=== PATIENT | female | born 2000 | race Two or more races ===

== ENCOUNTER 2023-07-27 16:10 | Observation (INO) | payer MEDICAID | END 2023-07-27 17:27 | disposition home or self-care (01) | LOC: UNDOADMOB 16:10 → LDRP 16:10 → UNDODISOB 17:27 | PROVIDERS: ADMIT Obstetrics & Gynecology; ATTEND Obstetrics & Gynecology | DX: O44.02 Complete placenta previa NOS or without hemorrhage, second trimester (principal); Z3A.21 21 weeks gestation of pregnancy | CPT/HCPCS: 59025; 94760; G0378 ==

== ENCOUNTER → 2023-08-29 | Outpatient (CLI) | payer MEDICAID ==
[2023-08-29 10:02] LABS: Basophils # (auto) 0 10 ^3/uL (0-0.2); Basophils % (auto) 0.4 % (0.0-2.0); Eosinophils # (auto) 0.1 10 ^3/uL (0-0.8); Eosinophils % (auto) 0.5 % (0.0-7.0); Hematocrit 34.3 % (36.0-46.0); Hemoglobin 11.2 g/dL (12.2-16.2); Lymphocytes # (auto) 2.3 10 ^3/uL (0.4-5.4); Lymphocytes % (auto) 19.7 % (10.0-50.0); Mean Corpuscular Hemoglobin 22.7 pg (28.0-32.0); Mean Corpuscular Hgb Conc. 32.6 g/dL (32.0-36.0); Mean Corpuscular Volume 69.9 fL (80.0-100.0); Monocytes # (auto) 0.5 10 ^3/uL (0-1.3); Monocytes % (auto) 4.1 % (0.0-12.0); Neutrophils # (auto) 8.8 10 ^3/uL (1.6-8.6); Neutrophils % (auto) 75.3 % (37.0-80.0); Nucleated Red Blood Cells % 0.1 %; Red Blood Cells 4.91 10^6/uL (4.0-5.20); Red Cell Distribution Width 15.9 % (11.8-14.3); White Blood Cell 11.7 10^3/uL (4.4-10.8)
[2023-08-30 07:07] LABS: RPR Non Reactive (Non Reactive)
[2023-08-31 02:06] LABS: Chlamydia Trachomatis, NAA Negative (Negative); Neisseria gonorrhoeae, NAA Negative (Negative)
== END | disposition home or self-care (01) ==
LOC: LAB 09:42
PROVIDERS: ATTEND Obstetrics & Gynecology
DX: Z34.80 Encounter for supervision of other normal pregnancy, unspecified trimester (principal); Z3A.00 Weeks of gestation of pregnancy not specified
CPT/HCPCS: 36415; 82951; 83036; 85025; 86592; 87086

== ENCOUNTER 2023-10-11 12:23 | Observation (INO) | payer MEDICAID ==
[~2023-10-11] VITALS: Ht 182.9 cm; Wt 86.2 kg
[2023-10-11] MEDS ORDERED: BETAMETHASONE ACET (30mg/5ml) 5ml Vial 6mg/ml IM ONE (14:00)
[2023-10-12] MEDS ORDERED: PREN1TAB71 OR ×2 (13:24)
== END 2023-10-11 14:27 | disposition home or self-care (01) ==
LOC: LDRP 12:23 → UNDOADMOB 12:23 → LDRP 12:31 → UNDODISOB 14:27
PROVIDERS: ADMIT Obstetrics & Gynecology; ATTEND Obstetrics & Gynecology
DX: O26.853 Spotting complicating pregnancy, third trimester (principal); O44.03 Complete placenta previa NOS or without hemorrhage, third trimester; Z3A.32 32 weeks gestation of pregnancy; Z79.899 Other long term (current) drug therapy
CPT/HCPCS: 59025; 76818; 81002; 94760; 96372; G0378; J0702

== ENCOUNTER 2023-10-12 12:57 | Observation (INO) | payer MEDICAID ==
[~2023-10-12] VITALS: Ht 154.9 cm; Wt 72.6 kg
[2023-10-12] MEDS ORDERED: BETAMETHASONE ACET (30mg/5ml) 5ml Vial 6mg/ml IM ONE (13:00)
[2023-10-12] MEDS ORDERED: PREN1TAB71 OR ×2 (13:24)
== END 2023-10-12 14:10 | disposition home or self-care (01) ==
LOC: LDRP 12:57 → UNDOADMOB 12:57 → LDRP 13:01 → UNDODISOB 14:10
PROVIDERS: ADMIT Obstetrics & Gynecology; ATTEND Obstetrics & Gynecology
DX: O26.853 Spotting complicating pregnancy, third trimester (principal); O62.9 Abnormality of forces of labor, unspecified; Z3A.32 32 weeks gestation of pregnancy
CPT/HCPCS: 59025; 81002; 94760; 96372; G0378

== ENCOUNTER 2023-11-13 04:06 | Inpatient (IN) | payer MEDICAID ==
[2023-11-12 09:56] LABS: Eosinophils # (auto) 0 10 ^3/uL (0-0.8); Eosinophils % (auto) 0.3 % (0.0-7.0); Lymphocytes # (auto) 1.4 10 ^3/uL (0.4-5.4); Monocytes % (auto) 4.3 % (0.0-12.0)
[2023-11-12 09:57] LABS: Basophils # (auto) 0 10 ^3/uL (0-0.2); Basophils % (auto) 0.1 % (0.0-2.0); Hematocrit 35.7 % (36.0-46.0); Hemoglobin 11.4 g/dL (12.2-16.2); Lymphocytes % (auto) 11.2 % (10.0-50.0); Mean Corpuscular Hemoglobin 22.2 pg (28.0-32.0); Mean Corpuscular Hgb Conc. 31.9 g/dL (32.0-36.0); Mean Corpuscular Volume 69.7 fL (80.0-100.0); Monocytes # (auto) 0.5 10 ^3/uL (0-1.3); Neutrophils # (auto) 10.6 10 ^3/uL (1.6-8.6); Neutrophils % (auto) 84.1 % (37.0-80.0); Red Blood Cells 5.13 10^6/uL (4.0-5.20); Red Cell Distribution Width 15.1 % (11.8-14.3); White Blood Cell 12.6 10^3/uL (4.4-10.8)
[2023-11-12 10:13] LABS: Urine Bacteria FEW /hpf (None Seen); Urine Blood 1+ /uL (Negative); Urine Clarity HAZY (Clear); Urine Color Yellow (Yellow); Urine Protein, UAD TRACE (Negative); Urine Specific Gravity 1.019 (1.001-1.035); Urine Urobilinogen Normal (Negative); Urine WBC 2 /hpf (0 - 5); Urine pH 6.5 (5.0-8.0)
[2023-11-12 10:14] LABS: Alanine Aminotransferase 13 U/L (7-40); Alkaline Phosphatase 163 U/L (46-116); Anion Gap 6 (5-15); Aspartate Aminotransferase 12 U/L (13-40); Bilirubin, Total 0.5 mg/dL (0.2-1.0); Carbon Dioxide 23 mmol/L (20-30); Chloride 107 mmol/L (98-107); Glucose 80 mg/dL (74-106); Potassium 3.8 mmol/L (3.5-5.1); Sodium 136 mmol/L (136-145)
[2023-11-12 10:15] LABS: Total Protein 6.9 g/dL (5.7-8.2)
[2023-11-12 10:16] LABS: BUN/Creatinine Ratio 8.8 (10.0-20.0); Blood Urea Nitrogen < 5 mg/dL (9-23)
[2023-11-12 10:18] LABS: INR 0.92 (0.9-1.15); Partial Thromboplastin Time 31.9 SEC (24.5-34.5); Prothrombin Time 9.7 sec (9.3-11.8)
[2023-11-12 10:27] LABS: Amphetamine Screen, Urine Neg (NEGATIVE); Barbiturate Scree,Urine Neg (NEGATIVE); Benzodiazephine Screen, Urine Neg (NEGATIVE); Cannabinoid Screen, Urine Neg (NEGATIVE); Cocaine Screen, Urine Neg (NEGATIVE); Opiate Scree,Urine Neg (NEGATIVE); Phencyclidine Screen, Urine Neg (NEGATIVE)
[2023-11-13] VITALS (18 sets, daily range): BP systolic 90–112; BP diastolic 59–80; PULSE 57–79; RESP 14–20; TEMP 97.5–97.6; O2SAT 96–100
[~2023-11-13] VITALS: Ht 165.1 cm; Wt 78.9 kg
[~2023-11-13 04:06] MED LIST: PREN1TAB71 OR
[2023-11-13] MEDS: LACTATED RINGER'S 1,000 ML IV SCH ×2 (06:33→11:45)
[2023-11-13] MEDS: LACTATED RINGER'S 1,000 ML IV ONE (06:33)
[2023-11-13] MEDS ORDERED: ONDANSETRON HCL 4 MG/2 ML VIAL ONE (07:23)
[2023-11-13] MEDS ORDERED: oxyTOCIN 10 UNIT/ML 10ML VIAL ONE (07:23)
[2023-11-13] MEDS ORDERED: DexAMETHasone SOD PHOS 10MG/1ML VIAL INJ ONE (07:24)
[2023-11-13] MEDS ORDERED: MORPHINE SULF PF 5 MG/10 ML VIAL ONE (07:24)
[2023-11-13] MEDS ORDERED: fentaNYL CITRATE 100 MCG/2 ML VL ONE (07:24)
[2023-11-13] MEDS ORDERED: KETOROLAC TROMETH 30 MG/ML 1ML VIAL ONE (07:24)
[2023-11-13] MEDS: ceFAZolin 2 GM/D5W50ml 50 ML IV ONE (07:45)
[2023-11-13] MEDS ORDERED: SODIUM CHLORIDE LOCK 10 ML ONE (08:03)
[2023-11-13] MEDS ORDERED: PHENYLEPHRINE HCL 10 MG/ML VL ONE (08:03)
[2023-11-13] MEDS ORDERED: HYDROmorphone HCL 2 MG/ML VL/or syr IV PRN (09:00)
[2023-11-13] MEDS ORDERED: ONDANSETRON HCL 4 MG/2 ML VIAL IV PRN ×2 (09:00→11:45)
[2023-11-13] MEDS ORDERED: diphenhdrAMINE HCL 50 MG/1 ML VL IV PRN (09:00)
[2023-11-13] MEDS ORDERED: NALOXONE HCL 0.4 MG/ML VIAL IV PRN (09:00)
[2023-11-13] MEDS ORDERED: ePHEDrine SULFATE 50 MG/ML AMP IV PRN (11:45)
[2023-11-13] MEDS: NALBUPHINE HCL 10 MG/1ml INJECTION IV ONE (13:51)
[2023-11-13] MEDS: ACETAMINOPHEN IV 1000 MG/100ML (10MG/ML) IV PRN (15:09)
[2023-11-13] MEDS: ceFAZolin 1GM/50ML 50 ML IV SCH (15:58)
[2023-11-13] MEDS: KETOROLAC TROMETH 30 MG/ML 1ML VIAL IV PRN (18:59)
[2023-11-14] VITALS (13 sets, daily range): BP systolic 94–106; BP diastolic 53–78; PULSE 54–81; RESP 16–20; TEMP 97.6–98.1; O2SAT 96–100
[2023-11-14] MEDS: ACETAMINOPHEN IV 1000 MG/100ML (10MG/ML) IV PRN (00:34)
[2023-11-14] MEDS ORDERED: HYDROcodone-ACET 5/325MG TAB PO PRN (06:15)
[2023-11-14 07:06] LABS: RPR Non Reactive (Non Reactive)
[2023-11-14 07:08] LABS: Basophils # (auto) 0 10 ^3/uL (0-0.2); Basophils % (auto) 0.1 % (0.0-2.0); Eosinophils # (auto) 0 10 ^3/uL (0-0.8); Eosinophils % (auto) 0.2 % (0.0-7.0); Hemoglobin 8.9 g/dL (12.2-16.2); Neutrophils # (auto) 9.3 10 ^3/uL (1.6-8.6)
[2023-11-14 07:10] LABS: Hematocrit 27.4 % (36.0-46.0); Lymphocytes # (auto) 2.6 10 ^3/uL (0.4-5.4); Lymphocytes % (auto) 19.8 % (10.0-50.0); Mean Corpuscular Hemoglobin 22.7 pg (28.0-32.0); Mean Corpuscular Hgb Conc. 32.7 g/dL (32.0-36.0); Mean Corpuscular Volume 69.6 fL (80.0-100.0); Monocytes # (auto) 1.3 10 ^3/uL (0-1.3); Neutrophils % (auto) 69.9 % (37.0-80.0); Red Blood Cells 3.93 10^6/uL (4.0-5.20); Red Cell Distribution Width 15.2 % (11.8-14.3); White Blood Cell 13.3 10^3/uL (4.4-10.8)
[2023-11-14] MEDS ORDERED: IBUP-1455 PO (07:19)
[2023-11-14] MEDS ORDERED: HYDR-4902 PO (07:19)
[2023-11-14] MEDS: IBUPROFEN 800 MG TAB PO PRN (07:38)
[2023-11-14] MEDS: SIMETHICONE 80 MG CHEWABLE TABLET PO SCH (11:59)
[2023-11-14] MEDS: HYDROcodone-ACET 5/325MG TAB PO PRN (18:19)
[2023-11-14] MEDS ORDERED: ASCO500T11 PO (22:30)
[2023-11-14] MEDS ORDERED: FER325T PO (22:30)
[2023-11-14] MEDS ORDERED: DOCU-94 PO (22:30)
[2023-11-14] MEDS ORDERED: PREN1TAB71 PO (22:30)
[2023-11-15 03:00] VITALS: BP 99/67; PULSE 80; RESP 18; TEMP 98.1; O2SAT 98
[2023-11-15 07:00] VITALS: BP 101/73; PULSE 80; RESP 16; TEMP 98.4; O2SAT 100
[2023-11-15 19:06] LABS: Treponema pallidum Ab (FTA-Ab) Non Reactive (Non Reactive)
== END 2023-11-15 10:30 | disposition home or self-care (01) | DRG 540 ==
LOC: UNDOADMIN 04:06 → LDRP 04:06
PROVIDERS: ADMIT Obstetrics & Gynecology; ATTEND Obstetrics & Gynecology
PROC: 10D00Z1 Extraction of Products of Conception, Low, Open Approach (ICD-10-PCS; principal; 2023-11-13 07:51)
DX: O60.14X0 Preterm labor third trimester with preterm delivery third trimester, not applicable or unspecified (principal); O44.03 Complete placenta previa NOS or without hemorrhage, third trimester; D62 Acute posthemorrhagic anemia; O99.02 Anemia complicating childbirth; Z37.0 Single live birth; Z3A.36 36 weeks gestation of pregnancy
CPT/HCPCS: 36415; 59025; 80053; 80307; 81001; 81002; 85025; 85610; 85730; 86592; 86850; 86900; 86901; 94760; 94762; 96360; 96361; 96366; G0378; J0131; J1100; J1885; J2405; J2590

== ENCOUNTER 2023-11-20 10:26 | Emergency (ER) | payer MEDICAID ==
[~2023-11-20] VITALS: Ht 157.5 cm; Wt 76.1 kg
[~2023-11-20 10:26] MED LIST changes: +ASCO500T11 PO; +DOCU-94 PO; +FER325T PO; +HYDR-4902 PO; +IBUP-1455 PO; -PREN1TAB71 OR; +PREN1TAB71 PO
[2023-11-20 12:43] VITALS: BP 121/87; PULSE 117; RESP 18; TEMP 97.6; O2SAT 95
[2023-11-20] MEDS ORDERED: HYDR-3682 PO (13:56)
== END 2023-11-20 13:57 | disposition home or self-care (01) ==
LOC: ER 10:26
DX: T78.40XA Allergy, unspecified, initial encounter (principal); Z79.1 Long term (current) use of non-steroidal anti-inflammatories (NSAID); Z79.899 Other long term (current) drug therapy; Y92.89 Other specified places as the place of occurrence of the external cause